=== PATIENT | male | born 1970 | race Caucasian/White ===

== ENCOUNTER 2016-06-18 07:49 | Emergency (ER) ==
[2016-06-18] MEDS ORDERED: ASPIRIN PO STA (07:50)
--- NOTE | 2016-06-18 08:08 | EKG Report ---
Test Performed on : 06/18/2016 07:54:06 AM Test Reason : CP Blood Pressure : / mmHG Vent. Rate : 093 BPM Atrial Rate : 093 BPM P-R Int : 164 ms QRS Dur : 072 ms QT Int : 336 ms P-R-T Axes : 023 021 042 degrees QTc Int : 417 ms Normal sinus rhythm. Normal ECG When compared with ECG of 29-NOV-2014 18:37, Vent. rate has increased BY 36 BPM Non-specific change in ST segment in Inferior leads Unconfirmed Result
[2016-06-18 08:43] LABS: BASO% 0.7 % (0.0-0.8); EOS# 0.26 X1000 (0.0-0.7); EOS% 3.2 % (0.0-10.0); HEMATOCRIT 35.7 % (42.0-52.0); HEMOGLOBIN 10.3 g/dL (14.0-18.0); IMM GRAN# 0.01 X1000 (0.0-0.04); IMM GRAN% 0.1 % (0.0-0.5); LYMPH# 2.02 X1000 (1.2-3.4); LYMPH% 25.2 % (20.5-51.1); MANUAL DIFF NEEDED? NO; MCH 22.1 PG (27-31); MCHC 28.9 g/dL (33-37); MCV 76.6 FL (81-99); MONO# 0.82 X1000 (0.11-0.59); MONO% 10.2 % (1.7-9.3); MPV 10.2 FL (7.4-10.4); NEUT% 60.6 % (42.2-75.2); PLT 346 X1000 (130-400); RBC 4.66 XMIL (4.7-6.1)
[2016-06-18 08:48] LABS: INR 1.06 (0.86-1.15); PROTIME 14.1 Seconds (12.1-15.5)
[2016-06-18 08:49] LABS: AGAP 13; ALBUMIN 4.1 g/dL (3.5-5.0); ALKALINE PHOSPHATASE 115 U/L (32-122); BUN 6 mg/dL (8-22); CHLORIDE 104 mmol/L (98-107); CK PROFILE 73 U/L (24-204); COSMO 274; GOT 31 U/L (10-34); GPT 31 U/L (10-44); MAGNESIUM 1.9 mg/dL (1.5-2.7); POTASSIUM 3.4 mmol/L (3.5-5.1); PTT PL 25.3 Seconds (22.6-43.9); SODIUM 137 mmol/L (136-145); TCO2 20 mmol/L (25-35); TOTAL PROTEIN 6.6 g/dL (6.3-8.3)
--- NOTE | 2016-06-18 08:50 | Diag Imaging Result Document ---
PROCEDURE NAME: CHEST-2 VIEWS - 06/18/2016 FRONTAL AND LATERAL CHEST, TWO VIEWS: COMPARISON: 11/29/2014. FINDINGS: The lungs are well expanded. The heart is not enlarged. The pulmonary vessels are small. No pleural effusions. No pneumonia. No free air beneath the diaphragm. There is a small hiatal hernia. IMPRESSION: 1. No pneumonia. 2. Small hiatal hernia. 3. The patient may have emphysema.
--- NOTE | 2016-06-18 09:20 | PROVIDER DOCUMENTATION ---
HPI-Chest Pain - General Chief Complaint: Chest Pain Stated Complaint: CHEST PAIN Time Seen by Provider: 06/18/16 08:06 Source: patient Allergies/Adverse Reactions: Patient Allergies Allergy/AdvReac Type Severity Reaction Status Date / Time latex Allergy RASH Verified 11/29/14 11:12 Home Medications: Home Medication List Medication Instructions Recorded Confirmed Last Taken Type Aripiprazole [Abilify] 10 mg PO DAILY 11/29/14 11/29/14 11/28/14 19:00 History 10 mg Aspirin 81 mg PO DAILY 11/29/14 11/29/14 11/28/14 19:00 History 81 mg Esomeprazole [Nexium] 40 mg PO DAILY 11/29/14 11/29/14 11/28/14 19:00 History 40 mg Hydrocodone/APAP 7.5 mg/325 mg 1 tab PO TID 11/29/14 11/29/14 11/28/14 19:00 History [[place]-7.5] 1 tablet Lisinopril 20 mg PO DAILY 11/29/14 11/29/14 11/28/14 19:00 History 20 mg Methocarbamol [Robaxin-750] 750 mg PO Q6HR 11/29/14 11/29/14 11/28/14 19:00 History 750 mg Simvastatin [Zocor] 20 mg PO DAILY 11/29/14 11/29/14 11/28/14 19:00 History 20 mg Zolpidem [Ambien] 10 mg PO QHS 11/29/14 11/29/14 11/28/14 19:00 History 10 mg - History of Present Illness-CP Nature of Presenting Problem: 46 yo WM presents to ED with cc of tightness in his chest on his L side. Pt reports this began ~1 month ago but that the pain increased yesterday and this morning to 7/10 after exertion. Pt reports this episode of tightness has been constant but that pain lessened with rest. Pt reports dizziness and SOB on exertion. Pt had a stress test 2 weeks ago that showed 35-40% EF. Pt reports quitting smoking 1 month ago from 1 PPD. Upon arrival to ED, pt is in no apparent distress. Location: reports: substernal Chest Pain Radiation: reports: no radiation Quality of Pain: reports: tightness Severity in ED: moderate, severe Onset/Duration: abrupt, 24 hours ago Timing: still present, constant Context/Activities at Onset: reports: moderate activity Modifying Factors: improves with: lying down, rest Associated Symptoms: reports: dizziness, shortness of breath Nitro Today/Relief: no nitro taken today Aspirin Treatment Today: provided by ED Prior Chest Pain/Cardiac Workup: reports: echocardiography, stress test Similar Symptoms Previously?: Yes Recently Seen Here or By Another Healthcare Provider: Yes Review of Systems - Adult - REVIEW OF SYSTEMS - ADULT Constitutional: reports: no symptoms reported. denies: chills, fever Eyes: reports: no symptoms reported. denies: blurred vision, double vision Ears, Nose, Mouth & Throat: reports: no symptoms reported. denies: ear pain, sinus problem Cardiovascular: reports: chest pain (L side) Respiratory: reports: dyspnea on exertion Gastrointestinal: reports: no symptoms reported. denies: abdominal pain, difficulty swallowing Genitourinary: reports: no symptoms reported. denies: dysuria, flank pain Musculoskeletal: reports: no symptoms reported. denies: bone pain, joint pain Integumentary: reports: no symptoms reported. denies: hives, itching Neurological: reports: dizziness/vertigo Psychiatric: reports: no symptoms reported. denies: anxiety, depression Endocrine: reports: no symptoms reported. denies: cold intolerance, heat intolerance Hematologic/Lymphatic: reports: no symptoms reported. denies: blood clots, low blood count Allergic/Immunologic: reports: no symptoms reported. denies: allergic reactions , eczema All Other Systems: Reviewed and Negative Past History - Adult - PAST MEDICAL HISTORY-ADULT Review of Records: reports: Old Records Reviewed, Nursing Assessment Review, Medications Reviewed Cardiovascular: reports: HTN, hyperlipidemia Gastrointestinal: reports: GERD Psychiatric: reports: other (insomnia) Other Conditions: reports: other (sleep disorder ) - PRIOR SURGERIES/PROCEDURES Surgical/Procedure History: reports: reviewed, not pertinent, appendectomy - PRIOR HOSPITALIZATIONS Prior Hospitalizations: reports: for other non-related - IMMUNIZATION STATUS Childhood Immunizations: See Nurse Assessment Flu Vaccine: See Nurse Assessment - FAMILY HISTORY Family History: reviewed, not pertinent Physical Exam-General - PHYSICAL EXAM-ADULT Initial Vital Signs Reviewed: Yes - CONSTITUTIONAL General Appearance: appears well, alert, no apparent distress, obese - EYES Eyes: PERRL/EOMI, pink conjunctivae - HEAD, EARS, NOSE, MOUTH & THROAT HENMT: normocephalic/atraumatic, moist mucous membranes - NECK Neck: full range of motion, supple - RESPIRATORY Respiratory: lungs clear, normal breath sounds, no pleuratic chest pain - CARDIOVASCULAR Cardiovascular: normal peripheral pulses, regular rate, rhythm, other (Tender, L side) - GASTROINTESTINAL (ABDOMEN) Abdominal Exam: normal bowel sounds, non tender, soft - LYMPHATIC Lymphatic: no adenopathy - MUSCULOSKELETAL Back Exam: normal inspection, no vertebral tenderness Extremity: normal range of motion, non-tender - SKIN Integumentary: normal color, normal turgor - NEUROLOGIC Neurologic: grossly normal, no motor/sensory deficits - PSYCHIATRIC Psych/Mental Status: normal mood/affect, normal thought content, normal thought process, oriented x 3 Attestation - Scribe Verification/Attestation Scribe:: Daily Irvin Acting as Scribe for:: Kaylie Sam Jr Scribe documention review:: This chart was documented by a scribe and accurately reflects the service the provider performed and the decisions made by the provider. - Physician/ JENNIFER Attestation Patient care was provided by Advanced Practice Provider:: No
--- NOTE | 2016-06-18 09:20 | PROVIDER DOCUMENTATION ---
HPI-Chest Pain - General Source: patient, family - History of Present Illness-CP Location: reports: other (left anterior chest) Chest Pain Radiation: reports: no radiation Quality of Pain: reports: tightness Severity in ED: moderate Onset/Duration: 24 hours ago Timing: still present Context/Activities at Onset: reports: light activity Modifying Factors: improves with: nothing Associated Symptoms: reports: dizziness, shortness of breath Nitro Today/Relief: no nitro taken today Aspirin Treatment Today: 325 mg x 1, provided by ED Prior Chest Pain/Cardiac Workup: reports: echocardiography, stress test Similar Symptoms Previously?: Yes Recently Seen Here or By Another Healthcare Provider: Yes <Kaylie Sam Jr - Last Filed: 06/18/16 11:16> <Daily Irvin - Last Filed: 06/18/16 11:36> - General Chief Complaint: Chest Pain Stated Complaint: CHEST PAIN Time Seen by Provider: 06/18/16 08:06 Allergies/Adverse Reactions: Patient Allergies Allergy/AdvReac Type Severity Reaction Status Date / Time latex Allergy RASH Verified 11/29/14 11:12 Home Medications: Home Medication List Medication Instructions Recorded Confirmed Last Taken Type Aripiprazole [Abilify] 10 mg PO DAILY 11/29/14 11/29/14 11/28/14 19:00 History 10 mg Aspirin 81 mg PO DAILY 11/29/14 11/29/14 11/28/14 19:00 History 81 mg Esomeprazole [Nexium] 40 mg PO DAILY 11/29/14 11/29/14 11/28/14 19:00 History 40 mg Hydrocodone/APAP 7.5 mg/325 mg 1 tab PO TID 11/29/14 11/29/14 11/28/14 19:00 History [[place]-7.5] 1 tablet Lisinopril 20 mg PO DAILY 11/29/14 11/29/14 11/28/14 19:00 History 20 mg Methocarbamol [Robaxin-750] 750 mg PO Q6HR 11/29/14 11/29/14 11/28/14 19:00 History 750 mg Simvastatin [Zocor] 20 mg PO DAILY 11/29/14 11/29/14 11/28/14 19:00 History 20 mg Zolpidem [Ambien] 10 mg PO QHS 0811/29/14 11/28/14 19:00 History 10 mg Hydrocodone/Acetaminophen [[place] 1 each PO Q6H PRN #20 tablet 06/18/16 Unknown Rx 5-325 Tablet] - History of Present Illness-CP Nature of Presenting Problem: 46 y/o WM with a PMHx of HTN, HLD and GERD that presents to the ED with a one day h/o chest tightness. Pt states tightness is constant and located at the left anterior chest. Denies an radiation. Intensity of 7/10. Aggravated with exertion. No alleviating factors. ROS is pertinent for dizziness and SOB. Pt reports recent cardiac workup which included a stress test and echo. Stress was abnormal and echo had an EF of 35-40%. No other issues. (Kaylie Sam Jr) Review of Systems - Adult - REVIEW OF SYSTEMS - ADULT Constitutional: reports: no symptoms reported Eyes: reports: no symptoms reported Ears, Nose, Mouth & Throat: reports: no symptoms reported Cardiovascular: reports: chest pain Respiratory: reports: shortness of breath Gastrointestinal: reports: no symptoms reported Genitourinary: reports: no symptoms reported Musculoskeletal: reports: no symptoms reported Integumentary: reports: no symptoms reported Neurological: reports: dizziness/vertigo Psychiatric: reports: no symptoms reported Endocrine: reports: no symptoms reported Hematologic/Lymphatic: reports: no symptoms reported Allergic/Immunologic: reports: no symptoms reported <Kaylie Sam Jr - Last Filed: 06/18/16 11:16> Past History - Adult - PAST MEDICAL HISTORY-ADULT Review of Records: reports: Old Records Reviewed, Nursing Assessment Review, Medications Reviewed Cardiovascular: reports: HTN, hyperlipidemia Other Conditions: reports: other (sleep disorder ) - PRIOR SURGERIES/PROCEDURES Surgical/Procedure History: reports: reviewed, not pertinent, appendectomy - PRIOR HOSPITALIZATIONS Prior Hospitalizations: reports: for other non-related - IMMUNIZATION STATUS Childhood Immunizations: See Nurse Assessment Flu Vaccine: See Nurse Assessment - FAMILY HISTORY Family History: reviewed, not pertinent - SOCIAL HISTORY Smoking: quit less than 1 year, cigarettes, greater than 1 pack/day Substance Use: none/never Alcohol Use Frequency: never Living Situation: family <Kaylie Sam Jr - Last Filed: 06/18/16 11:16> Physical Exam-General - PHYSICAL EXAM-ADULT Initial Vital Signs Reviewed: Yes - CONSTITUTIONAL General Appearance: appears well, alert, no apparent distress. negative: slow to respond, obtunded - EYES Eyes: PERRL/EOMI, pink conjunctivae - HEAD, EARS, NOSE, MOUTH & THROAT HENMT: normocephalic/atraumatic, moist mucous membranes. negative: pharyngeal erythema, tonsillar exudate - NECK Neck: non-tender, full range of motion. negative: C-spine tenderness - RESPIRATORY Respiratory: chest non-tender, lungs clear, normal breath sounds. negative: accessory muscle use, crackles, rales, rhonchi, wheezing - CARDIOVASCULAR Cardiovascular: normal peripheral pulses, regular rate, rhythm, no murmur - CHEST (BREASTS) Chest/Breast: tenderness (left anterior chest) - GASTROINTESTINAL (ABDOMEN) Abdominal Exam: normal bowel sounds, non tender, soft. negative: guarding, rigid, rebound, tenderness - GENITOURINARY Male Genitalia: deferred Rectal Exam: deferred - MUSCULOSKELETAL Back Exam: normal inspection, no CVA tenderness Extremity: normal range of motion, non-tender, normal gait. negative: calf tenderness, deformity, erythema - SKIN Integumentary: normal color, normal turgor, warm/dry - NEUROLOGIC Neurologic: grossly normal - PSYCHIATRIC Psych/Mental Status: normal mood/affect, normal thought content, normal thought process, oriented x 3. negative: anxious, disheveled, paranoid, tearful <Kaylie Sam Jr - Last Filed: 06/18/16 11:16> Progress - CONSULTS/PCP/HOSPITALIST Notification #1 *Consult/PCP/Hospitalist*: Dr. Price Time Discussed: 10:20 (call cardiology. Will gladly admit if they want patient admitted. ) #2 Consult: Dr. Godoy Time Discussed: 10:32 (If 2ne troponin is negative, patient okay to follow up in office in AM ) <Kaylie Sam Jr - Last Filed: 06/18/16 11:16> - EKG 1 Time of EKG reading by physician:: 07:54 EKG Read and Signed by:: Kaylie Sam Jr EKG Interpretation (*Must complete 3 of following elements*): Normal Rate: 93 Rhythm: Sinus [place]: normal QRS: normal MD Interval: normal 2 Time of EKG reading by physician:: 10:41 EKG Read and Signed by:: Kaylie Sam Jr EKG Interpretation (*Must complete 3 of following elements*): Normal Rate: 71 Rhythm: Sinus [place]: normal QRS: normal MD Interval: normal ST Wave: normal <Daily IrvinTaylor - Last Filed: 06/18/16 11:36> - PLAN OF CARE/RESULTS Progress/Plan/Lab Results: Laboratory Tests 06/18/16 06/18/16 06/18/16 08:15 08:15 08:15 WBC RBC Hgb Hct MCV MCH MCHC RDW Std Deviation Plt Count MPV Immature Gran % (Auto) Neut % (Auto) Lymph % (Auto) [place] % (Auto) Eos % (Auto) Baso % (Auto) Immature Gran # (Auto) Neut # (Auto) Lymph # (Auto) [place] # (Auto) Eos # (Auto) Baso # (Auto) PT INR APTT (Factor Assay) Sodium 137 Potassium 3.4 L Chloride 104 Carbon Dioxide 20 L Anion Gap 13 BUN 6 L Creatinine 0.8 Estimated GFR/1.73 m2 > 60 BUN/Creatinine Ratio 8 Glucose 150 H Calculated Osmolality 274 Calcium 9.0 Magnesium 1.9 Total Bilirubin 0.80 AST 31 ALT 31 Alkaline Phosphatase 115 Creatine Kinase 73 Troponin T < 0.010 Kex-P-Ffvvyerbson Pept 16 Total Protein 6.6 Albumin 4.1 Globulin 3.0 Albumin/Globulin Ratio 2.0 06/18/16 06/18/16 06/18/16 08:15 08:15 10:20 WBC 8.02 RBC 4.66 L Hgb 10.3 L Hct 35.7 L MCV 76.6 L MCH 22.1 L MCHC 28.9 L RDW Std Deviation 16.3 H Plt Count 346 MPV 10.2 Immature Gran % (Auto) 0.1 Neut % (Auto) 60.6 Lymph % (Auto) 25.2 [place] % (Auto) 10.2 H Eos % (Auto) 3.2 Baso % (Auto) 0.7 Immature Gran # (Auto) 0.01 Neut # (Auto) 4.85 Lymph # (Auto) 2.02 [place] # (Auto) 0.82 H Eos # (Auto) 0.26 Baso # (Auto) 0.06 PT 14.1 INR 1.06 APTT (Factor Assay) 25.3 Sodium Potassium Chloride Carbon Dioxide Anion Gap BUN Creatinine Estimated GFR/1.73 m2 BUN/Creatinine Ratio Glucose Calculated Osmolality Calcium Magnesium Total Bilirubin AST ALT Alkaline Phosphatase Creatine Kinase 71 Troponin T Lhb-N-Xiuqvwuarlp Pept Total Protein Albumin Globulin Albumin/Globulin Ratio 06/18/16 10:20 WBC RBC Hgb Hct MCV MCH MCHC RDW Std Deviation Plt Count MPV Immature Gran % (Auto) Neut % (Auto) Lymph % (Auto) [place] % (Auto) Eos % (Auto) Baso % (Auto) Immature Gran # (Auto) Neut # (Auto) Lymph # (Auto) [place] # (Auto) Eos # (Auto) Baso # (Auto) PT INR APTT (Factor Assay) Sodium Potassium Chloride Carbon Dioxide Anion Gap BUN Creatinine Estimated GFR/1.73 m2 BUN/Creatinine Ratio Glucose Calculated Osmolality Calcium Magnesium Total Bilirubin AST ALT Alkaline Phosphatase Creatine Kinase Troponin T < 0.010 Xjd-P-Ypwbivgxokj Pept Total Protein Albumin Globulin Albumin/Globulin Ratio Orders Category Date Time Status Cardiac Monitoring DIRECTED Care 06/18/16 07:50 Active Oxygen Therapy- ED Nursing DIRECTED Care 06/18/16 07:50 Active Saline Loc NOW Care 06/18/16 07:50 Active CHEST-2 VIEWS [RAD] Stat Exams 06/18/16 07:50 Completed CBC WITH ELECTRONIC DIFF [HEME] Stat Lab 06/18/16 08:15 Completed CK PROFILE [SP CHEM] Stat Lab 06/18/16 08:15 Completed CK PROFILE [SP CHEM] Stat Lab 06/18/16 10:20 Completed COMPREHENSIVE METABOLIC PANEL [CHEM] Stat Lab 06/18/16 08:15 Completed MAGNESIUM [CHEM] Stat Lab 06/18/16 08:15 Completed PRO B-NATRIURETIC PEPTIDE Stat Lab 06/18/16 08:15 Completed [address]IME WITH INR PL [COAG] Stat Lab 06/18/16 08:[address] [COAG] Stat Lab 06/18/16 08:15 Completed TROPONIN T Stat Lab 06/18/16 08:15 Completed TROPONIN T Stat Lab 06/18/16 10:20 Completed Aspirin Med 06/18/16 07:50 Discontinued 325 mg PO STAT STA Morphine Med 06/18/16 09:23 Discontinued 4 mg IV NOW ONE Ondansetron [Zofran] Med 06/18/16 09:23 Discontinued 4 mg IV NOW ONE EKG [EKG] Stat Ther 06/18/16 07:50 Draft EKG [EKG] Stat Ther 06/18/16 10:13 Draft Vital Signs - 24 hr 06/18/16 07:52 Temperature 97.8 F Pulse Rate 98 H Respiratory 22 Rate Blood Pressure 157/108 O2 Sat by Pulse 99 Oximetry (Kaylie Sam Jr) Departure - Departure Time of Disposition Order: 11:17 Certified Medical Emergency: Emergent <Kaylie Sam Jr - Last Filed: 06/18/16 11:16> <Daily Irvin - Last Filed: 06/18/16 11:36> - Departure DIAGNOSIS: Chest pain Qualifiers: Chest pain type: unspecified Qualified Code(s): R07.9 - Chest pain, unspecified Disposition: HOME 01 Condition: Good Additional Instructions: PT TO FOLLOW UP ARI GODOY ON 06/19/2016. ED Follow Up Instructions: You have been treated by a care provider in the Emergency Department. These instructions are being provided to you so you can have an understanding of how to care for yourself upon discharge. Upon discharge from the Emergency Department, you are responsible for making arrangements for follow-up care by a physician of your choice. Take all prescribed medications as directed. Return to the Emergency Department immediately for any new or worsening symptoms. You may call the Physician Referral phone number at [phone] to obtain a list of Physicians who are taking new patients. Prescriptions: Hydrocodone/Acetaminophen [[place] 5-325 Tablet] 1 each PO Q6H PRN #20 tablet PRN Reason: Pain Referrals: Khalif Price MD [Primary Care Provider] - Forms: Return to School/Parent Work Instructions: Acetaminophen; Hydrocodone tablets or capsules, Nonspecific Chest Pain Attestation - Scribe Verification/Attestation Scribe:: Daily Irvin Acting as Scribe for:: Kaylie Sam Jr Scribe documention review:: This chart was documented by a scribe and accurately reflects the service the provider performed and the decisions made by the provider. - Physician/ JENNIFER Attestation Patient care was provided by Advanced Practice Provider:: No <Daily Irvin - Last Filed: 06/18/16 11:36> Physician Attestation
[2016-06-18] MEDS ORDERED: ZOFRAN IV ONE (09:23)
[2016-06-18] MEDS ORDERED: MORPHINE IV ONE (09:23)
--- NOTE | 2016-06-18 11:14 | EKG Report ---
Test Performed on : 06/18/2016 10:41:52 AM Test Reason : repeat Blood Pressure : / mmHG Vent. Rate : 071 BPM Atrial Rate : 071 BPM P-R Int : 174 ms QRS Dur : 074 ms QT Int : 382 ms P-R-T Axes : 039 011 032 degrees QTc Int : 415 ms Normal sinus rhythm. Normal ECG When compared with ECG of 18-JUN-2016 07:54, (Unconfirmed) No significant change was found Unconfirmed Result
[2016-06-18 11:54] VITALS: BP 139/087
== END 2016-06-18 11:56 | disposition home or self-care (01) ==
LOC: P.ED 07:49
DX: R07.89 Other chest pain (principal); R42 Dizziness and giddiness; R06.02 Shortness of breath; I10 Essential (primary) hypertension; E78.5 Hyperlipidemia, unspecified; K21.9 Gastro-esophageal reflux disease without esophagitis; Z79.82 Long term (current) use of aspirin; Z79.899 Other long term (current) drug therapy; Z87.891 Personal history of nicotine dependence
CPT/HCPCS: 71020; 80053; 82550; 83735; 83880; 84484; 85025; 85610; 85730; 93005; 96374; 96375; J2270; J2405

== ENCOUNTER 2016-06-22 07:06 | Day surgery (SDC) ==
[2016-06-22] MEDS ORDERED: NS 1,000 ML ONE (07:58)
[2016-06-22] MEDS ORDERED: NITROGLYCERIN ONE (08:17)
[2016-06-22] MEDS ORDERED: HEPARIN 1000 UNITS/NS 1,000 ML ONE (08:17)
[2016-06-22] MEDS ORDERED: VERSED ONE ×2 (08:43→09:18)
[2016-06-22] MEDS ORDERED: DEMEROL ONE ×2 (08:44→09:18)
[2016-06-22] MEDS ORDERED: XYLOCAINE 1% ONE (09:20)
--- NOTE | 2016-06-22 13:23 | CARDIAC CATH REPORT ---
DATE: 06/22/2016 PROCEDURES PERFORMED: 1. Left heart catheterization. 2. Selective coronary angiogram. 3. Left ventriculogram. 4. Opacification of femoral artery with deployment of 6-[place] Angio-Seal device. HISTORY OF PRESENT ILLNESS: This is a 46-year-old male with several risk factors for coronary artery disease, who presented to the office first through the emergency room complaining of recurrent chest discomfort and dizziness. He took a stress test with Dr. Price that showed decreased ejection fraction. Subsequent echocardiogram performed several days later revealed that the ejection fraction was more normal. The patient was really very worried about the ongoing sequence of symptoms. 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 We discussed with him possible options and after discussing the alternatives, we decided to pursue left heart catheterization as a direct way of finding out exactly what was going on. The benefits, risks and complications were explained to him in detail. He understood and requested to proceed. DESCRIPTION OF PROCEDURE: The patient was brought to the cardiac laborer sawmill in a fasting state. The right antecubital fossa was prepped and draped in sterile fashion and also the right groin. Initially I attempted to approach the brachial artery; however, after a reasonable attempt, I aborted it. The vessel was very, very deep and not easily accessible. Then he received a total of 3 mg of Versed and 75 mg of Demerol for sedation. Right femoral artery was cannulated with a 6- [place] sheath following the modified Seldinger technique. The coronary arteries were opacified with 6-[place]ian left Dominic 4 and right catheter. Intracoronary nitroglycerin was given during the opacification of left coronary artery. Thereafter a 6-[place] pigtail catheter was used to opacify the left ventricular chamber. This was done in the 30 degree [place] projection with caudal angulation by injecting 39 mL of Omnipaque at 13 mL per second. At the end of the procedure, the pigtail catheter was flushed and removed. The sheath was opacified, and Angio-Seal device was deployed at the level of the right femoral artery, achieving good hemostasis. SUMMARY OF HEMODYNAMIC FINDINGS: Central aortic pressure was 113/73. Left ventricular pressure 103/10. Post LV gram, 111/15. Final central aortic pressure was 117/85. SUMMARY OF ANGIOGRAPHIC FINDINGS: 1. Left main coronary artery: The left main coronary artery shows a very mild ostial plaque no more than 10%. The left main divides into LAD and circumflex. 2. Left anterior descending coronary artery: This vessel appears to be anatomically normal and gives rise to a bifurcating diagonal branch which is anatomically normal. The LAD thereafter gives rise to an additional smaller diagonal branch and tapers down as a less than 1.5 mm vessel in caliber as it reaches the apex of the left ventricle. 3. Circumflex coronary artery: The circumflex coronary artery is a nondominant vessel. After giving rise to a sinus ashley branch and a first lateral branch, the circumflex displays a 40% to 50% eccentric plaque. Therefore, it continues down the AV groove and then gives rise to the posterolateral vessel. At the point of origin of this posterolateral vessel, there is a 70% discrete stenosis, smooth. 4. Right coronary artery: The right coronary artery is a dominant vessel. It gives rise to conus branch and right ventricular branches. It shows only minor irregularities. It gives rise to a posterior descending branch and a posterolateral vessel that appear to be anatomically normal. LEFT VENTRICULOGRAM: Left ventriculogram in the 30 degree [place] projection with caudal angulation reveals some enlargement of the left ventricular chamber with good contractility. Ejection fraction is estimated at 50% to 55%. No definite wall motion abnormality noted. No mitral regurgitation noted. OPACIFICATION OF RIGHT FEMORAL ARTERY: Unremarkable. Angio-Seal device was deployed. CONCLUSIONS: 1. Moderate to severe single vessel coronary artery disease involving the circumflex system. Proximal plaque in the order of 50% and more distal plaque in the order of 70%. The left main shows 10% ostial stenosis. The LAD is free of any obstruction, and also the right coronary artery appears to be free of any obstruction. 2. Mild enlargement of left ventricle with preserved contractility. Ejection fraction is 50% to 55%. 3. No aortic stenosis. No mitral regurgitation. 4. Normal LVEDP. 5. Unremarkable right femoral artery. RECOMMENDATIONS: The patient will be treated medically with beta dannie and calcium blockers. We will see how he does over the course of the next 3 to 4 weeks, and if he does not improve, then we will pursue coronary intervention. The patient is in agreement. We will follow him at the office.
[2016-06-22] MEDS ORDERED: ZOFRAN ONE (14:06)
[2016-06-22 15:11] VITALS: BP 144/93
== END 2016-06-22 15:30 | disposition home or self-care (01) ==
LOC: CATH 07:06
PROVIDERS: ATTEND Internal Medicine Cardiovascular Disease
DX: I25.119 Atherosclerotic heart disease of native coronary artery with unspecified angina pectoris (principal); R94.39 Abnormal result of other cardiovascular function study; E78.5 Hyperlipidemia, unspecified; I10 Essential (primary) hypertension; R42 Dizziness and giddiness; R07.9 Chest pain, unspecified; R06.02 Shortness of breath; Z68.35 Body mass index [BMI] 35.0-35.9, adult; K21.9 Gastro-esophageal reflux disease without esophagitis; E66.09 Other obesity due to excess calories; F17.210 Nicotine dependence, cigarettes, uncomplicated; Z82.49 Family history of ischemic heart disease and other diseases of the circulatory system; Z79.899 Other long term (current) drug therapy; Z79.82 Long term (current) use of aspirin; K44.9 Diaphragmatic hernia without obstruction or gangrene
CPT/HCPCS: 93458; C1760; J1644; J2175; J2250; J2405; J7030; Q9967

== ENCOUNTER 2016-07-03 17:39 | Inpatient (IN) ==
[2016-07-03] MEDS ORDERED: ASPIRIN PO STA (17:41)
[2016-07-03] MEDS ORDERED: ASPIRIN ONE (17:43)
--- NOTE | 2016-07-03 18:01 | EKG Report ---
Test Performed on : 07/03/2016 5:42:15 PM Test Reason : CP Blood Pressure : / mmHG Vent. Rate : 080 BPM Atrial Rate : 080 BPM P-R Int : 170 ms QRS Dur : 072 ms QT Int : 344 ms P-R-T Axes : 057 042 052 degrees QTc Int : 396 ms Normal sinus rhythm. Normal ECG When compared with ECG of 18-JUN-2016 10:41, No significant change was found Unconfirmed Result
[2016-07-03 18:07] LABS: EOS# 0.41 X1000 (0.0-0.7); EOS% 4.2 % (0.0-10.0); HEMATOCRIT 36.6 % (42.0-52.0); HEMOGLOBIN 10.5 g/dL (14.0-18.0); IMM GRAN# 0.01 X1000 (0.0-0.04); IMM GRAN% 0.1 % (0.0-0.5); LYMPH# 2.58 X1000 (1.2-3.4); LYMPH% 26.2 % (20.5-51.1); MANUAL DIFF NEEDED? NO; MCH 21.9 PG (27-31); MCHC 28.7 g/dL (33-37); MCV 76.3 FL (81-99); MONO# 1.09 X1000 (0.11-0.59); MONO% 11.1 % (1.7-9.3); MPV 10.2 FL (7.4-10.4); NEUT% 57.4 % (42.2-75.2); PLT 384 X1000 (130-400)
[2016-07-03 18:25] LABS: INR 1.04 (0.86-1.15); PROTIME 13.9 Seconds (12.1-15.5)
[2016-07-03 18:26] LABS: PTT PL 23.5 Seconds (22.6-43.9)
[2016-07-03 18:31] LABS: AGAP 12; ALBUMIN 4.2 g/dL (3.5-5.0); ALKALINE PHOSPHATASE 112 U/L (32-122); BUN 8 mg/dL (8-22); CALCIUM 9.3 mg/dL (8.8-10.2); CHLORIDE 104 mmol/L (98-107); CK PROFILE 79 U/L (24-204); COSMO 277; GOT 29 U/L (10-34); GPT 28 U/L (10-44); MAGNESIUM 2.1 mg/dL (1.5-2.7); POTASSIUM 3.3 mmol/L (3.5-5.1); SODIUM 139 mmol/L (136-145); TCO2 23 mmol/L (25-35); TOTAL PROTEIN 6.9 g/dL (6.3-8.3)
--- NOTE | 2016-07-03 18:34 | ED EKG INTERP ---
EKG Interpretation - EKG Time of EKG reading by physician:: 17:42 EKG Read and Signed by:: Chris Diaz EKG Interpretation (*Must complete 3 of following elements*): Normal Rate: 80 Rhythm: NSR [place]: normal QRS: normal Attestation - Scribe Verification/Attestation Scribe:: Tia Rogers Acting as Scribe for:: Chris Diaz Scribe documention review:: This chart was documented by a scribe and accurately reflects the service the provider performed and the decisions made by the provider. Physician Attestation - Physician Attestation I, the provider, attest to the following statement:: Chris Diaz Physician documentation Attestation:: This documentation recorded by the scribe accurately reflects the service I personally performed and the decisions made by me.
[2016-07-03] MEDS ORDERED: KLOR-CON PO ONE (18:47)
[2016-07-03] MEDS ORDERED: MORPHINE IV PRN ×2 (18:50→20:17)
[2016-07-03] MEDS ORDERED: ZOFRAN IV PRN ×2 (18:50→20:17)
[2016-07-03] MEDS ORDERED: TYLENOL PO PRN ×2 (18:50→20:17)
--- NOTE | 2016-07-03 19:13 | PROVIDER DOCUMENTATION ---
HPI-Chest Pain - General Chief Complaint: Chest Pain Stated Complaint: CHEST PAIN,HIGH BP Time Seen by Provider: 07/03/16 18:36 Source: patient Allergies/Adverse Reactions: Patient Allergies Allergy/AdvReac Type Severity Reaction Status Date / Time No Known Allergies Allergy Verified 06/22/16 08:29 Home Medications: Home Medication List Medication Instructions Recorded Confirmed Last Taken Type Aspirin 81 mg PO DAILY 11/29/14 06/22/16 06/21/16 History Hydrocodone/APAP 7.5 mg/325 mg 1 tab PO TID 11/29/14 06/22/16 06/20/16 History [[place]-7.5] Lisinopril 20 mg PO DAILY 11/29/14 06/22/16 06/21/16 History Methocarbamol [Robaxin-750] 750 mg PO Q6H PRN PRN 11/29/14 06/22/16 2 Weeks Ago History Simvastatin [Zocor] 20 mg PO DAILY 11/29/14 06/22/16 06/21/16 History Zolpidem [Ambien] 10 mg PO QHS 11/29/14 06/22/16 06/21/16 History Alprazolam [Xanax] 3 mg PO HS 06/22/16 06/22/16 06/21/16 History Omeprazole [Prilosec] 40 mg PO DAILY 06/22/16 06/22/16 06/21/16 History Amlodipine Besylate [Norvasc] 5 mg DAILY 07/03/16 07/03/16 Unknown History Metoprolol Succinate E.r. [Toprol 25 mg DAILY 07/03/16 07/03/16 Unknown History Xl] - History of Present Illness-CP Nature of Presenting Problem: PT IS A 46YOM PRESENTING TO THE ED C/O CP. PT STATES CP FOR 1-2 DAYS NOW WITH NO ASSOCIATED N/V/ OR DIAPHORESIS. PT STATES HE HAS SEEN CARDIOLOGY AND HAVE 2 LARGE BLOCKAGES ON OVER 50% ND THE OTHER OVER 70%. NO OTHER COMPLAINTS NOTED AT THIS TIME Location: reports: central Chest Pain Radiation: reports: no radiation Quality of Pain: reports: aching, pressure Severity in ED: moderate Onset/Duration: 2 days ago Timing: still present, intermittent Context/Activities at Onset: reports: light activity Modifying Factors: improves with: nothing Associated Symptoms: denies: back pain, diaphoresis, dizziness, nausea, shortness of breath, vomiting, weakness Nitro Today/Relief: no nitro taken today Aspirin Treatment Today: 325 mg x 1, provided by ED Prior Chest Pain/Cardiac Workup: reports: echocardiography Similar Symptoms Previously?: No Recently Seen Here or By Another Healthcare Provider: No Review of Systems - Adult - REVIEW OF SYSTEMS - ADULT Constitutional: reports: no symptoms reported Eyes: reports: no symptoms reported Ears, Nose, Mouth & Throat: reports: no symptoms reported Cardiovascular: reports: see HPI, chest pain. denies: edema, palpitations, poor circulation, syncope Respiratory: reports: no symptoms reported Gastrointestinal: reports: no symptoms reported Genitourinary: reports: no symptoms reported Musculoskeletal: reports: no symptoms reported Integumentary: reports: no symptoms reported Neurological: reports: no symptoms reported Psychiatric: reports: no symptoms reported Endocrine: reports: no symptoms reported Hematologic/Lymphatic: reports: no symptoms reported Allergic/Immunologic: reports: no symptoms reported All Other Systems: Reviewed and Negative Past History - Adult - PAST MEDICAL HISTORY-ADULT Review of Records: reports: Old Records Reviewed, Nursing Assessment Review, Medications Reviewed, Social history reviewed & non-contributory. Major Childhood Illnesses: reports: denies history Cardiovascular: reports: HTN, hyperlipidemia Respiratory: reports: denies history Gastrointestinal: reports: denies history Obstetrical/Gynecological: reports: denies history Genitourinary: reports: denies history Musculoskeletal: reports: denies history Neurological: reports: denies history Endocrine/Immune: reports: denies history Other Conditions: reports: other (sleep disorder ) - PRIOR SURGERIES/PROCEDURES Surgical/Procedure History: reports: reviewed, not pertinent, appendectomy - PRIOR HOSPITALIZATIONS Prior Hospitalizations: reports: for other non-related - IMMUNIZATION STATUS Childhood Immunizations: See Nurse Assessment Flu Vaccine: See Nurse Assessment - FAMILY HISTORY Family History: reviewed, not pertinent - SOCIAL HISTORY Smoking: non-smoker, quit greater than 1 year Substance Use: none/never, denies Alcohol Use Frequency: never Living Situation: family Physical Exam-General - PHYSICAL EXAM-ADULT Initial Vital Signs Reviewed: Yes - CONSTITUTIONAL General Appearance: appears well, alert, no apparent distress - EYES Eyes: PERRL/EOMI, pink conjunctivae, fundi clear, no AV nicking - HEAD, EARS, NOSE, MOUTH & THROAT HENMT: normocephalic/atraumatic, moist mucous membranes, normal ENT inspection, TMs normal, pharynx normal - NECK Neck: non-tender, full range of motion, supple, normal inspection - RESPIRATORY Respiratory: chest non-tender, lungs clear, normal breath sounds, no pleuratic chest pain, no respiratory distress, no accessory muscle use - CARDIOVASCULAR Cardiovascular: normal peripheral pulses, regular rate, rhythm, no edema, no gallop, no JVD, no murmur - GASTROINTESTINAL (ABDOMEN) Abdominal Exam: normal bowel sounds, non tender, soft, no organomegaly, no pulsatile mass - LYMPHATIC Lymphatic: no adenopathy - MUSCULOSKELETAL Back Exam: normal inspection, no CVA tenderness, no vertebral tenderness Extremity: normal range of motion, non-tender, normal gait, normal inspection, no pedal edema, no calf tenderness, normal capillary refill, pelvis stable - SKIN Integumentary: normal color, normal turgor, warm/dry - NEUROLOGIC Neurologic: lead handler II-XII nml as tested, grossly normal, no motor/sensory deficits - PSYCHIATRIC Psych/Mental Status: normal mood/affect, normal thought content, normal thought process, oriented x 3 Progress - PLAN OF CARE/RESULTS Progress/Plan/Lab Results: Laboratory Tests 07/03/16 07/03/16 07/03/16 17:53 17:53 17:53 WBC RBC Hgb Hct MCV MCH MCHC RDW Std Deviation Plt Count MPV Immature Gran % (Auto) Neut % (Auto) Lymph % (Auto) [place] % (Auto) Eos % (Auto) Baso % (Auto) Immature Gran # (Auto) Neut # (Auto) Lymph # (Auto) [place] # (Auto) Eos # (Auto) Baso # (Auto) PT INR APTT (Factor Assay) Sodium 139 Potassium 3.3 L Chloride 104 Carbon Dioxide 23 L Anion Gap 12 BUN 8 Creatinine 0.9 Estimated GFR/1.73 m2 > 60 BUN/Creatinine Ratio 9 Glucose 122 H Calculated Osmolality 277 Calcium 9.3 Magnesium 2.1 Total Bilirubin 0.60 AST 29 ALT 28 Alkaline Phosphatase 112 Creatine Kinase 79 Troponin T < 0.010 [id number] Pept 38 Total Protein 6.9 Albumin 4.2 Globulin 3.0 Albumin/Globulin Ratio 2.0 07/03/16 07/03/16 17:53 17:53 WBC 9.84 RBC 4.80 Hgb 10.5 L Hct 36.6 L MCV 76.3 L MCH 21.9 L MCHC 28.7 L RDW Std Deviation 16.5 H Plt Count 384 MPV 10.2 Immature Gran % (Auto) 0.1 Neut % (Auto) 57.4 Lymph % (Auto) 26.2 [place] % (Auto) 11.1 H Eos % (Auto) 4.2 Baso % (Auto) 1.0 H Immature Gran # (Auto) 0.01 Neut # (Auto) 5.65 Lymph # (Auto) 2.58 [place] # (Auto) 1.09 H Eos # (Auto) 0.41 Baso # (Auto) 0.10 PT 13.9 INR 1.04 APTT (Factor Assay) 23.5 Sodium Potassium Chloride Carbon Dioxide Anion Gap BUN Creatinine Estimated GFR/1.73 m2 BUN/Creatinine Ratio Glucose Calculated Osmolality Calcium Magnesium Total Bilirubin AST ALT Alkaline Phosphatase Creatine Kinase Troponin T Fxr-[id number] Pept Total Protein Albumin Globulin Albumin/Globulin Ratio Orders Category Date Time Status Admit - [facility] Routine AdmDCTranf 07/03/16 18:50 Ordered Activity - Strict Bedrest ORDERED Care 07/03/16 18:50 Active Call Admitting on Arrival AT ADMISSION Care 07/03/16 18:51 Active Cardiac Monitoring DIRECTED Care 07/03/16 17:42 Active Oxygen Therapy- ED Nursing DIRECTED Care 07/03/16 17:42 Active Saline Loc DIRECTED Care 07/03/16 18:50 Active Saline Loc NOW Care 07/03/16 17:42 Active Vital Signs Order ARRIVAL TO ROOM Care 07/03/16 18:50 Active Heart Healthy Diet Diet 07/03/16 18:52 Active CHEST-2 VIEWS [RAD] Stat Exams 07/03/16 17:42 Taken CBC WITH ELECTRONIC DIFF [HEME] Stat Lab 07/03/16 17:53 Completed CK PROFILE [SP CHEM] Stat Lab 07/03/16 17:53 Completed COMPREHENSIVE METABOLIC PANEL [CHEM] Stat Lab 07/03/16 17:53 Completed MAGNESIUM [CHEM] Stat Lab 07/03/16 17:53 Completed PRO B-NATRIURETIC PEPTIDE Stat Lab 07/03/16 17:53 Completed [address]IME WITH INR PL [COAG] Stat Lab 07/03/16 17:[address] [COAG] Stat Lab 07/03/16 17:53 Completed TROPONIN T Lab 07/03/16 21:00 Uncollected TROPONIN T Lab 07/04/16 05:00 Uncollected TROPONIN T Lab 07/04/16 13:00 Uncollected TROPONIN T Lab 07/04/16 21:00 Uncollected TROPONIN T Stat Lab 07/03/16 17:53 Completed Acetaminophen [Tylenol] Med 07/03/16 18:50 Active 650 mg PO Q6H PRN PRN Aspirin Med 07/03/16 17:43 Discontinued 325 mg .ROUTE .STK-MED ONE Aspirin Med 07/03/16 17:41 Discontinued 325 mg PO STAT STA Morphine Med 07/03/16 18:50 Active 2 mg IV Q2H PRN PRN Ondansetron [Zofran] Med 07/03/16 18:50 Active 4 mg IV Q4H PRN PRN Potassium Chloride E.r. [Klor-Con] Med 07/03/16 18:47 Discontinued 30 meq PO NOW ONE Oxygen Device Routine Oth 07/03/16 18:51 Active Telemetry [OM.EQ] Routine Oth 07/03/16 18:50 Active EKG [EKG] Stat Ther 07/03/16 17:42 Draft Transfer/Admit Order [TRANSFER] Routine Transfer 07/03/16 18:47 Ordered Vital Signs - 24 hr 07/03/16 07/03/16 17:43 19:04 Temperature 97.3 F L Pulse Rate 94 H 74 Respiratory 20 20 Rate Blood Pressure 157/95 122/88 O2 Sat by Pulse 100 100 Oximetry - CONSULTS/PCP/HOSPITALIST Notification #1 *Consult/PCP/Hospitalist*: SHIRA Time Discussed: 19:14 (CONSULT FOR ADMISSION FOR CP R/O MD CONSULT CARD IN AM) Consult Disposition: Admit Departure - Departure Time of Disposition Order: 19:15 DIAGNOSIS: Chest pain, rule out acute myocardial infarction Disposition: ADMITTED INPATIENT 09 Certified Medical Emergency: Emergent Condition: Stable Attestation - Scribe Verification/Attestation Scribe:: Tia Rogers Acting as Scribe for:: Chris Diaz Scribe documention review:: This chart was documented by a scribe and accurately reflects the service the provider performed and the decisions made by the provider. Physician Attestation - Physician Attestation I, the provider, attest to the following statement:: Chris Diaz Physician documentation Attestation:: This documentation recorded by the scribe accurately reflects the service I personally performed and the decisions made by me.
[2016-07-04 06:45] LABS: HEMATOCRIT 36.3 % (42.0-52.0); HEMOGLOBIN 10.4 g/dL (14.0-18.0); MCH 21.9 PG (27-31); MCHC 28.7 g/dL (33-37); MCV 76.6 FL (81-99); MPV 10.4 FL (7.4-10.4); RBC 4.74 XMIL (4.7-6.1)
[2016-07-04 07:08] LABS: AGAP 10; ALBUMIN 3.8 g/dL (3.5-5.0); ALKALINE PHOSPHATASE 102 U/L (32-122); BUN 9 mg/dL (8-22); CALCIUM 9.1 mg/dL (8.8-10.2); CHLORIDE 104 mmol/L (98-107); COSMO 274; GOT 24 U/L (10-34); GPT 25 U/L (10-44); HDL 24 mg/dL (35-55); LDL 132 mg/dL; MAGNESIUM 2.2 mg/dL (1.5-2.7); POTASSIUM 4.2 mmol/L (3.5-5.1); SODIUM 138 mmol/L (136-145); TCO2 24 mmol/L (25-35); TOTAL PROTEIN 6.4 g/dL (6.3-8.3); TRIGLYCERIDES 90 mg/dL (39-160); VLDL 18 mg/dL
--- NOTE | 2016-07-04 10:35 | Diag Imaging Result Document ---
PROCEDURE NAME: CHEST-2 VIEWS - 07/03/2016 CHEST, 2 VIEWS: COMPARISON: 06/18/2016. FINDINGS: Heart size is normal. There is retrocardiac density compatible with hiatal hernia again seen. The lungs appear essentially clear. There is no pleural effusion or pneumothorax identified. IMPRESSION: Hiatal hernia. No other evidence of acute disease.
--- NOTE | 2016-07-05 06:09 | DISCHARGE SUMMARY ---
ADMISSION DATE: 07/03/2016 DISCHARGE DATE: 07/04/2016 DISCHARGE DIAGNOSES: 1. Chest pain, appears improved. 2. Moderate anxiety, stable. 3. Known coronary artery disease. The patient had a heart catheterization by Dr. Rodarte on 06/22/2016. 4. Moderate obesity. 5. Obstructive sleep apnea that the patient is intentionally not treating it due to intolerance of machine. CONSULTATIONS: None. PROCEDURES: None. BRIEF HOSPITAL COURSE: The patient is a 46-year-old male who was admitted as noted in the HPI. Treated in the usual fashion. He thankfully had an uneventful hospital course. His chest pain resolved. DISPOSITION: The patient will be discharged home. He just had a heart catheterization by Dr. Rodarte, cardiology, within the past 2 weeks and was relegated to medical treatment. He will follow up this week with Dr. Rodarte. Discussed with patient that he does not need to go back to work until he has seen and been cleared by Dr. Rodarte.
[2016-07-05 12:15] VITALS: BP 143/104
--- NOTE | 2016-07-05 16:26 | HISTORY AND PHYSICAL ---
SUBJECTIVE: Chest pain. HISTORY OF PRESENT ILLNESS: The patient is A 46-year-old male who just had a heart catheterization by Dr. Rodarte approximately 2 weeks ago and was told he was relegated to medical management. Was told he had some blockages but they were not amenable to stenting. States that he was walking around at work and became lightheaded and had chest pain. Notes that after he sat down the pain got better. REVIEW OF SYSTEMS: As noted above. Positive chest pain, palpitations. Denies any fevers, chills, cough, congestion. Denies any dysuria, frequency, urgency, hesitancy, polyuria. Denies any GI or issues otherwise. States the chest pain was midsternal, heavy at times. Got better with rest, worse with activity. He was carrying around a heavy door when the symptoms started. Denies any pain with movement of his upper extremities. PAST MEDICAL HISTORY: Significant for hypertension, hypercholesterolemia, known coronary artery disease with a recent heart catheterization [address] Rodarte, chronic reflux, insomnia, chronic back pain, bipolar. PAST SURGICAL HISTORY: Appendectomy. Patient recently had a left heart catheterization. SOCIAL HISTORY: Patient lives at home. Continues to smoke up until a year ago. At that time he stopped and states that he has not been smoking in the last year. Does not use any illicit drugs. Does not use his CPAP at home. He does live at home with his and is employed. FAMILY HISTORY: Positive coronary artery disease. Mother had an NV at age 52. ALLERGIES: Latex. MEDICATIONS: Aspirin 81, [place] t.i.d. p.r.n., lisinopril 20, Ambien 10, Robaxin 750 p.r.n., Prilosec 40, Xanax 3, Zocor 20. PHYSICAL: Vital signs: Reviewed. Temperature 97 degrees, pulse 77, respiratory rate 18, BP 139/92, saturations 100% on room air. General: Patient well developed, well nourished, currently in no real respiratory distress. He is awake, alert, oriented. Neck: Supple. CV: Regular rate. Chest: Relatively clear. Abdomen: Soft, nondistended, nontender. Extremities: Moves all extremities. Neurologic: No focal neurological changes. Skin: Warm and dry. No rashes. LABS: Reviewed. ASSESSMENT: 1. Chest pain in a patient with known coronary artery disease. 2. Anemia of mild chronic disease. 3. Mild hypokalemia. 4. Morbid obesity. 5. Obstructive sleep apnea with medical noncompliance. 6. High cholesterol. 7. Others. PLAN: Will admit patient to hospital. Rule out for an NV. Continue to follow. Further orders as needed.
--- NOTE | 2016-07-05 19:19 | PROGRESS NOTE ---
ADMISSION DATE: 07/03/2016 DISCHARGE DATE: 07/05/2016 SUBJECTIVE: The patient notes that he is feeling much better today. He did have some episodes of chest pain yesterday. That is the reason he did not actually go home. It was felt best to hold him overnight. Thankfully the pain has completely resolved at this point. OBJECTIVE: He is awake, alert. He is oriented. He is in no acute distress and he is feeling better. ASSESSMENT: 1. Chest pain, resolved. Known coronary artery disease, stable. 2. Hypercholesterolemia. 3. Obesity. 4. Reflux. 5. Bipolar. 6. Obstructive sleep apnea. Again discussed with patient the perils of not treating his sleep apnea. Patient notes that he will begin treating this at home.
== END 2016-07-05 14:05 | disposition home or self-care (01) | DRG 313 ==
LOC: P.ED 17:39 → P.MEDSURG 18:49 → OBSVTOIN 18:49
PROVIDERS: ATTEND Family Medicine
DX: R07.9 Chest pain, unspecified (principal); I25.10 Atherosclerotic heart disease of native coronary artery without angina pectoris; E66.01 Morbid (severe) obesity due to excess calories; I10 Essential (primary) hypertension; E87.6 Hypokalemia; D63.8 Anemia in other chronic diseases classified elsewhere; E78.00 Pure hypercholesterolemia, unspecified; K21.9 Gastro-esophageal reflux disease without esophagitis; G47.33 Obstructive sleep apnea (adult) (pediatric); F41.9 Anxiety disorder, unspecified; Z91.19 Patient's noncompliance with other medical treatment and regimen; Z79.899 Other long term (current) drug therapy; Z79.82 Long term (current) use of aspirin; Z87.891 Personal history of nicotine dependence; Z68.33 Body mass index [BMI] 33.0-33.9, adult; Z82.49 Family history of ischemic heart disease and other diseases of the circulatory system
CPT/HCPCS: 36415; 71020; 80053; 80061; 82550; 83735; 83880; 84484; 85025; 85027; 85610; 85730; 93005; 94761; 99285